=== PATIENT | male | born 1970 | race Caucasian/White ===

== ENCOUNTER 2019-04-04 14:08 | Inpatient (IN) ==
[2019-04-04 14:52] LABS: Amphetamine Screen,Urine Negative ng/mL (Cutoff=1000); Barbiturate Screen,Urine Negative ng/mL (Cutoff=200); Benzodiazepines Screen,Urine Negative ng/mL (Cutoff=200); Cannabinoid Screen,Urine Negative ng/mL (Cutoff = 50); Cocaine Screen,Urine Negative ng/mL (Cutoff= 300); Opiate Screen,Urine Negative ng/mL (Cutoff=300); Phencyclidine Screen,Urine Negative ng/mL (Cutoff=25)
[2019-04-04 15:17] LABS: Basophils % 0.3 %; Eosinophils % 0.1 %; Hematocrit 44.1 % (37.5-50.1); Hemoglobin 16.2 g/dL (12.9-16.9); Immature Granulocytes % 0.2 % (0-4); Lymphocytes # 1.5 K/mcL (0.6-4.6); Mean Corpuscular HGB Conc 36.7 g/dL (31.6-35.5); Mean Corpuscular Hemoglobin 30.6 pg (28.0-33.3); Mean Corpuscular Volume 83.2 fL (83.0-100.0); Mean Platelet Volume 9.5 fL (9.4-12.4); Monocytes # 0.8 K/mcL (0.0-1.3); Monocytes % 7.9 %; Neutrophils # 7.5 K/mcL (1.6-8.9); Platelet Count 254 K/mcL (140-400); Red Cell Distribution Width 12.3 % (11.5-14.5); Segmented Neutrophils % 76.5 %; White Blood Count 9.9 K/mcL (4.3-11.1)
[2019-04-04 15:38] LABS: Acetaminophen < 10 mcg/mL (10-20); BUN/Creatinine Ratio 12 (6-26); Blood Urea Nitrogen 10 mg/dL (6-20); Calcium 9.5 mg/dL (8.6-10.3); Carbon Dioxide 22 mEq/L (23-29); Chloride 103 mEq/L (98-107); Ethanol < 10 mg/dL (Less than 10); Glucose 168 mg/dL (70-105); Osmolality,Calculated 285 (280-300); Potassium 3.7 mEq/L (3.5-5.1); Salicylate < 2.5 mg/dL (15.0-30.0); Sodium 136 mEq/L (136-145); eGFR For African Americans > 60 (> 60); eGFR For Non-African Americans > 60 (> 60)
[2019-04-04] MEDS ORDERED: cloNIDine HCl 0.1 MG TABLET PO ONE ×2 (16:40→21:00)
[2019-04-04] MEDS ORDERED: *HR* LORazepam 2 MG/ML VIAL IM PRN (20:58)
[2019-04-04] MEDS ORDERED: *HR* LORazepam 1 MG TABLET PO PRN (20:58)
[2019-04-04] MEDS ORDERED: MOM Conc 10 ML UD.LIQ PO PRN (20:58)
[2019-04-04] MEDS ORDERED: Haloperidol Lactate 5 MG/ML VIAL IM PRN (20:58)
[2019-04-04] MEDS ORDERED: Mag Hydrox/Al Hydrox/Simeth 30 ML UDC PO PRN (20:58)
[2019-04-04] MEDS: traZODone 50 MG TABLET PO PRN (21:43)
[2019-04-04] MEDS: hydrOXYzine pamoate 25 MG CAPSULE PO PRN (21:43)
[2019-04-04] MEDS: Ibuprofen 400 MG TABLET PO PRN (21:43)
[2019-04-04] MEDS ORDERED: Baclofen 10 MG TABLET PO PRN (21:57)
[2019-04-04] MEDS ORDERED: (Dulaglutide [Trulicity] 0.75 MG) SQ SCH (22:00)
[2019-04-04] MEDS: *HR* Metformin 500 MG TABLET PO SCH (22:47)
[2019-04-04] MEDS: *HR* Glimepiride 4 MG TABLET PO SCH (22:48)
[2019-04-05] MEDS: *HR* Metformin 500 MG TABLET PO SCH ×2 (08:45→17:12)
[2019-04-05] MEDS: *HR* Glimepiride 4 MG TABLET PO SCH ×2 (08:45→17:12)
[2019-04-05] MEDS: FLUoxetine 20 MG CAPSULE PO SCH (11:42)
[2019-04-05] MEDS: Ibuprofen 800 MG TABLET PO SCH (11:42)
[2019-04-05 14:18] LABS: Thyroid Stimulating Hormone 1.688 mcIU/mL (0.340-5.600)
[2019-04-05] MEDS ORDERED: Dextrose Gel 15 GM/37.5 ML TUBE PO PRN ×2 (14:20)
[2019-04-05] MEDS: Insulin LISPRO 300 UNITS/3 ML VIAL SQ SCH ×2 (17:11→21:13)
[2019-04-05] MEDS: traZODone 50 MG TABLET PO PRN (21:10)
[2019-04-05] MEDS: hydrOXYzine pamoate 25 MG CAPSULE PO PRN (21:10)
[2019-04-05] MEDS: Ibuprofen 400 MG TABLET PO PRN (21:11)
[2019-04-06] MEDS: FLUoxetine 20 MG CAPSULE PO SCH (08:13)
[2019-04-06] MEDS: *HR* Metformin 500 MG TABLET PO SCH ×2 (08:13→17:33)
[2019-04-06] MEDS: *HR* Glimepiride 4 MG TABLET PO SCH ×2 (08:13→17:33)
[2019-04-06] MEDS: Ibuprofen 800 MG TABLET PO SCH (08:13)
[2019-04-06] MEDS: Insulin LISPRO 300 UNITS/3 ML VIAL SQ SCH ×4 (08:15→21:44)
[2019-04-06] MEDS: Ibuprofen 400 MG TABLET PO PRN (17:35)
[2019-04-07 08:01] VITALS: BP 138/94
[2019-04-07] MEDS: Insulin LISPRO 300 UNITS/3 ML VIAL SQ SCH (08:03)
[2019-04-07] MEDS: FLUoxetine 20 MG CAPSULE PO SCH (08:28)
[2019-04-07] MEDS: *HR* Glimepiride 4 MG TABLET PO SCH (08:29)
[2019-04-07] MEDS: *HR* Metformin 500 MG TABLET PO SCH (08:29)
[2019-04-07] MEDS: Ibuprofen 800 MG TABLET PO SCH (08:29)
== END 2019-04-07 11:00 | disposition home or self-care (01) | DRG 885 ==
LOC: EMEROOARM 14:08 → 1ANU 18:17
PROVIDERS: ADMIT Psychiatry & Neurology Forensic Psychiatry; ATTEND Psychiatry & Neurology Forensic Psychiatry